=== PATIENT | female | born 1975 | race Caucasian/White ===

== ENCOUNTER → 2021-04-16 | Outpatient (CLI) | payer BC ==
[~2021-04-16] MED LIST: ALBU2.5V8 INH; AMLO-187 PO; ATOR20TA58 PO; OXYC-325 PO; SERT100T PO; olmesartan
== END ==
LOC: LAB 14:03
PROVIDERS: ATTEND Surgery
DX: Z01.812 Encounter for preprocedural laboratory examination (principal); Z20.822 Contact with and (suspected) exposure to COVID-19
CPT/HCPCS: U0003

== ENCOUNTER 2021-04-20 06:08 | Day surgery (SDC) | payer BC ==
[~2021-04-20] VITALS: Ht 174 cm; Wt 82.0 kg
[~2021-04-20 06:08] MED LIST changes: +ACETAMINOPHEN 500 MG TABLET PO PRN; -ALBU2.5V8 INH; -AMLO-187 PO; -ATOR20TA58 PO; +HYDROmorphone 2 MG/ML INJ. IVP PRN; +IV RINGERS,LACTATED 1000ML 1,000 ML IV SCH; +MORPHINE SULFATE 2 MG/ML INJ. IVP PRN; -OXYC-325 PO; +PROCHLORPERAZINE 10 MG/2 ML VIAL. IVP PRN; -SERT100T PO; +fentaNYL PF VIAL 100 MCG/2 ML VIAL IVP PRN; -olmesartan
[2021-04-20 06:34] VITALS: BP 161/95
[2021-04-20] MEDS ORDERED: SERT100T PO (06:43)
[2021-04-20] MEDS ORDERED: olmesartan (06:44)
[2021-04-20] MEDS ORDERED: ATOR20TA58 PO (06:45)
[2021-04-20] MEDS ORDERED: AMLO-187 PO (06:45)
[2021-04-20] MEDS ORDERED: ALBU2.5V8 INH (06:45)
[2021-04-20] MEDS ORDERED: BUPIVACAINE-EPI 0.25% 30 ML VIAL KIT. ONE (07:34)
[2021-04-20] MEDS ORDERED: fentaNYL PF VIAL 100 MCG/2 ML VIAL ONE (07:48)
[2021-04-20] MEDS ORDERED: MIDAZOLAM HCL/PF 2 MG/2 ML VIAL. ONE (07:48)
[2021-04-20] MEDS ORDERED: SUCCINYLCHOLINE 200 MG/10 ML VIAL. ONE (07:49)
[2021-04-20] MEDS ORDERED: HYDROmorphone 2 MG/ML INJ. ONE (08:24)
[2021-04-20] MEDS ORDERED: DEXAMETHASONE SOD PHOS 4 MG/ML VIAL ONE (08:30)
[2021-04-20] MEDS ORDERED: SEVOFLURANE 61 TO 120 MINUTES. IH ONE (08:30)
[2021-04-20] MEDS ORDERED: PROPOFOL 10 MG/ML (20ML) VIAL. IV ONE (08:30)
[2021-04-20] MEDS ORDERED: ONDANSETRON PF 4 MG/2 ML VIAL. ONE (08:30)
--- NOTE | 2021-04-20 08:39 | PDOC4 ---
Operative Note Operative Note Date: April 202021 at 8:37 AM Preoperative diagnosis: Right breast mass Postoperative diagnosis: Same Procedure: Excisional right breast biopsy Surgeon: Tiburcio Specimen: Right breast mass Law Examiner: None Dictation: Patient is 45-year-old female who felt a mass in her right breast on self-exam mammogram and ultrasound confirming a mass in the right breast. Procedure of excisional biopsy was explained to the patient detail all risk benefits were also discussed including bleeding infection alternatives to this procedure also discussed with patient who seemed to understand and gave a verbal written consent to have procedure performed. Patient was taken to the operating room placed in the supine position general anesthesia was initiated once patient was sleeping intubated her right chest were prepped and draped in the usual sterile fashion with ChloraPrep. Area around the nipple areolar complex was injected quarter percent Marcaine with epinephrine incision made with 15 blade scalpel is carried down through the subcutaneous tissue using electrocautery right hemostasis the mass was palpable and excised sharply with electrocautery. Once the mass was removed was marked with sutures with the short suture being the superior margin and the long suture the lateral margin. Wound was then closed in a single layer 4-0 subcuticular Monocryl Mastisol Steri-Strips and island dressings were applied. Patient was awakened extubated operating room taken recovery in stable condition all sponge instrument needle counts listed as correct estimated blood loss 5 mL SAMPSON MARROQUIN MD Apr 20, 2021 08:39
[2021-04-20] MEDS ORDERED: OXYC-325 PO (08:41)
--- NOTE | 2021-04-20 08:42 | DISCH ---
DISCHARGE INSTRUCTIONS Condition on Discharge Condition on Discharge: Stable Activity After Discharge Activity Instructions for Disc: Resume previous activity Diet after Discharge Diet after Discharge: Regular Wound Incision Care Other wound/incision instructi: Stefania shower in 24 hours Contacting the DRArnold after DC Call your doctor for: If your condition worsens Follow-Up Follow up with: Dr. Marroquin in 2-week SAMPSON MARROQUIN MD Apr 20, 2021 08:42
[2021-04-20 09:20] VITALS: BP 111/75
--- NOTE | 2021-04-22 19:07 | PATHOLOGY ---
[facility] Accession Number: [id number] . 01 Material submitted: . breast - RIGHT BREAST MASS . Modifiers: right . 01 Clinical history: . RIGHT BREAST LUMP RIGHT BREAST LUMP EXCISIONAL BIOPSY . 02 Diagnosis: Breast tissue, right breast lump oriented excisional biopsy: - INVASIVE DUCTAL CARCINOMA, HISTOLOGIC GRADE 2, FORMING A MASS MEASURING BETWEEN 1.5 AND 2.0 CM IN GREATEST DIMENSION. SEE SYNOPTIC REPORT. 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 - Invasive carcinoma is focally less than 1 mm from the closest (superficial) margin or resection. - Ductal carcinoma in situ is focally 4 mm from the closest (deep) margin of resection. - No lymphovascular tumor invasion identified. - Focal perineural tumor invasion identified. - Sclerosing adenosis, multifocal. - Proliferative fibrocystic changes with the following components: - Moderate/florid ductal epithelial hyperplasia. - Stromal fibrosis. - Duct ectasia. - Cystic change. - Apocrine metaplasia, focal. (JPM:mia/loulou; 04/21/2021) . . CASE SUMMARY: (INVASIVE CARCINOMA OF THE BREAST: Resection) Standard: AJCC-UICC 8 . SPECIMEN . Procedure ___ Other: Oriented excisional biopsy . Specimen Laterality ___ Right . TUMOR . +Tumor Site ___ Central (Subareolar) . Histologic Type ___ Invasive carcinoma of no special type (ductal) . Histologic Grade (Juanjo Histologic Score) Glandular (Acinar) / Tubular Differentiation ___ Score 2 (10 to 75% of tumor area forming glandular / tubular structures) . Nuclear Pleomorphism ___ Score 2 (Cells larger than normal with open vesicular nuclei, visible nucleoli, and moderate variability in both size and shape) . Mitotic Rate ___ Score 2 . Overall Grade ___ Grade 2 (scores of 6 or 7) . Tumor Size ___ Greatest dimension of largest invasive focus greater than 1 mm: Between 15 and 20 mm . +Tumor Focality ___ Single focus of invasive carcinoma . Ductal Carcinoma In Situ (DCIS) ___ Present +Architectural Patterns ___ Cribriform +Nuclear Grade ___ Grade II-III (intermediate- high) +Necrosis ___ Present, central (expansive "comedo" necrosis) . +Lobular Carcinoma In Situ (LCIS) ___ Not identified . +Microcalcifications ___ Present in non-neoplastic tissue ___ Present in DCIS ___ Present in invasive carcinoma . MARGINS . Invasive Carcinoma of Margins ___ Uninvolved by invasive carcinoma Distance from Closest Margin: Less than 1 mm Specify Closest Margin: Superficial margin . DCIS Margins ___ Uninvolved by DCIS Distance from Closest Margin: 4 mm Specify Closest Margin: Deep margin . REGIONAL LYMPH NODES . Regional Lymph Node Status ___ No lymph nodes submitted or found . Lymphovascular Invasion ___ Not identified . PATHOLOGIC STAGE CLASSIFICATION (pTNM, AJCC 8th Edition) . pT Category ___ pT1c: Tumor greater than 10 mm but less than or equal to 20 mm in greatest dimension . Regional Lymph Nodes . pN Category ___ pNX: Regional lymph nodes cannot be assessed . ADDITIONAL FINDINGS . +Additional Findings: See diagnoses . SPECIAL STUDIES . +Breast Biomarker Testing: Pending (JPM/db; 04/22/2021) MBR 04/22/2021 1805 Local . 02 Comment: The case is also examined by Dr. Fenton, who concurs with the diagnosis. The results are reported to Dr. Dey on 04/22/21 at 1:30 PM. (JPM/db; 04/22/2021) . 02 Electronically signed: . Steve Caldera MD, Pathologist NPI- [id number] . 01 Gross description: . Fixative: Formalin Labeled: Right breast mass Specimen received: Intact Oriented: Short stitch superficial, long stitch lateral Weight: 27 g Dimensions: 4.1 cm medial to lateral, 4.1 cm superior to inferior, 2.2 cm superficial to deep, . The specimen is inked as follows: superior-red inferior-blue superficial-green deep-black lateral-orange medial-yellow . Sectioned from: Superior to inferior Number of slices: 9 Lesion #1: 1.5 cm medial to lateral, 1.4 cm superficial to deep 1.1 cm superior to inferior Lesion #1 located in slices 5-9 . Lesion #1 distance to margins: 0.9 cm to superior 0.6 cm to inferior Involves the superficial margin, slices 4-5 0.3 cm to deep, slice 6 1.1 cm to lateral, slice 6 0.8 cm to medial, slice 5 . Lesion #1 distance to Lesion #2: 0.8 cm Lesion #2: 1.5 cm superior to inferior, 0.5 cm medial to lateral and 0.7 cm superficial to deep Lesion #2 located in slices 1-6 . Lesion #2 distance to margins: 0.5 cm to superior 1.3 cm to inferior 0.8 cm to superficial, slice 5 Suspicious for involving the deep margin, slices 2-3 Involves the lateral margin, slice 1 and 4 3.0 cm to medial, slice 5 . If lesion #1 and lesion #2 are contiguous then the new dimensions would be approximately 4.0 superior to inferior x 3.3 cm medial to lateral x 1.4 superficial to deep Biopsy clip: Not identified Uninvolved breast parenchyma: Fatty and homogenous with less than 5% fibrous tissue . The specimen is entirely submitted as follows: A1-A6: Slice 1 A7-A9: Slice 2 A10-A12: Slice 3 A13-A14: Slice 4 A15-A16: Slice 5 A17-A18: Slice 6 A19-A21: Slice 7 A22-A24: Slice 8 A25-A29: Slice 9 . Cold ischemic time: Less than 60 seconds Total time in formalin: 10 hours ([place]; 04/20/2021) DKA/DKA 04/20/2021 1556 Local . 02 Pathologist provided ICD-10: C50.911, D05.11, N60.21, N60.11, N62, N60.31, N60.41, N60.81 . 02 CPT . 693485 Specimen Comment: A courtesy copy of this report has been sent to [phone] Specimen Comment: Report sent to Specimen Comment: A duplicate report has been generated due to demographic updates. Performed at: [address] [place] [address] [facility] [address], [place], [place] [id number] MD Arnel Maxwell MD Phone: [phone] Performed at: [address] [id number] MD Steve Caldera MD Phone: [phone]
== END 2021-04-20 09:47 | disposition home or self-care (01) ==
LOC: SURG 06:08
PROVIDERS: ATTEND Surgery
DX: N63.12 Unspecified lump in the right breast, upper inner quadrant (principal); I10 Essential (primary) hypertension; E78.00 Pure hypercholesterolemia, unspecified; J44.9 Chronic obstructive pulmonary disease, unspecified; M19.90 Unspecified osteoarthritis, unspecified site; F41.9 Anxiety disorder, unspecified; F32.9 Major depressive disorder, single episode, unspecified; Z87.891 Personal history of nicotine dependence; Z79.899 Other long term (current) drug therapy; Z98.890 Other specified postprocedural states; Z88.5 Allergy status to narcotic agent
CPT/HCPCS: 19120; 81025; 88307; 88361; A4364; A4930; A6254; A6402; J0330; J0690; J1100; J1170; J2250; J2405; J2704; J3010; A4223; A4452

== ENCOUNTER 2021-05-05 11:49 | Day surgery (SDC) | payer BC ==
[~2021-05-05] VITALS: Ht 174 cm; Wt 82.0 kg
[~2021-05-05 11:49] MED LIST changes: +ALBU2.5V8 INH; +AMLO-187 PO; +ATOR20TA58 PO; +OXYC-325 PO; +SERT100T PO; +olmesartan
[2021-05-05 12:24] VITALS: BP 158/89
[2021-05-05] MEDS ORDERED: fentaNYL PF VIAL 100 MCG/2 ML VIAL ONE (12:43)
[2021-05-05] MEDS ORDERED: PROPOFOL 10 MG/ML (20ML) VIAL. IV ONE (12:43)
[2021-05-05] MEDS ORDERED: LIDOCAINE 2% PF 5 ML VIAL. ONE (12:43)
[2021-05-05] MEDS ORDERED: ONDANSETRON PF 4 MG/2 ML VIAL. ONE (12:44)
[2021-05-05] MEDS ORDERED: ISOSULFAN BLUE 1% 50 MG/5 ML VIAL. SQ ONE (13:06)
[2021-05-05] MEDS ORDERED: BUPIVACAINE-EPI 0.25%-1:200000 MPF 30 ML VIAL. ONE (13:06)
[2021-05-05] MEDS ORDERED: MIDAZOLAM HCL/PF 2 MG/2 ML VIAL. ONE (13:48)
[2021-05-05] MEDS ORDERED: HYDROmorphone 2 MG/ML INJ. ONE (14:18)
[2021-05-05] MEDS ORDERED: ePHEDrine PF IN SALINE 50 MG/10 ML SYRINGE. IV ONE (14:27)
--- NOTE | 2021-05-05 14:39 | PDOC4 ---
Operative Note Operative Note Date: May 052021 at 2:37 PM Preoperative diagnosis: Right breast cancer Postoperative diagnosis: Same Procedure: Right axillary sentinel lymph node biopsy Surgeon: Tiburcio Specimen: Lymph node right axilla Dictation: Patient is a 45-year-old female written previously undergone an excisional breast biopsy of a mass beneath the nipple areolar complex on the right breast the pathology report showed a invasive ductal carcinoma. She returns now for a sentinel lymph node biopsy of the right side. Procedure of sentinel lymph node biopsy was explained to the patient detail risk benefits were also discussed occluding bleeding infection alternatives to this procedure also discussed with the patient who seemed to understand and gave both verbal and written consent to have the procedure performed. Patient was taken to the operating room placed in the supine position general anesthesia was initiated once patient was sleeping intubated her right axilla and breast were prepped and draped usual sterile fashion. She had previously had injected from radiology nuclear medicine for the lymph nodes at this point and Lymphazurin was injected 1-1/2 cc in the 4 quadrants around the nipple areolar complex. This was allowed to percolate for 5 minutes. The counter was used to guide the incision in the right axilla area was marked injected with quarter percent Marcaine with epinephrine incision was made 15 blade scalpel is carried down through subcutaneous tissue using electrocautery right hemostasis down to an area where there was quite a bit of activity and a blue lymphatic duct was visualized this was followed down to have fairly large lymph node. Lymph node was excised with electrocautery and check for counting on the K track which showed a count of 3214. The specimen was sent for pathology. The wound was then closed in 2 layers a deep layer running 3-0 Vicryl and skin was reapproximated for subcuticular Monocryl Mastisol Steri-Strips and island dressings were applied. Patient was awakened extubated operating room taken to recovery in stable condition all sponge instrument needle counts listed as correct estimated blood loss 5 mL SAMPSON MARROQUIN MD May 05, 2021 14:39
[2021-05-05] MEDS ORDERED: OXYC-325 PO (14:42)
--- NOTE | 2021-05-05 14:45 | DISCH ---
DISCHARGE INSTRUCTIONS Condition on Discharge Condition on Discharge: Stable Activity After Discharge Activity Instructions for Disc: Resume previous activity Diet after Discharge Diet after Discharge: Regular Wound Incision Care Other wound/incision instructi: Stefania shower in 24-hour Contacting the DRArnold after DC Call your doctor for: If your condition worsens Follow-Up Follow up with: Dr. Marroquin in 2-week SAMPSON MARROQUIN MD May 05, 2021 14:45
--- NOTE | 2021-05-05 15:03 | RAD ---
NM SENTINEL NODE INJECTION History: Right breast cancer Technique: Procedure was explained to the patient. External skin site was cleansed with Betadine swab s. A total of 0.5 mCi of technetium 99 M was injected utilizing 1 syringe. Total volume of solution w as 0.5 mL. There was no significant bleeding or complication. Impression: Successful right breast injection for sentinel lymph node localization Electronically signed by: Krzysztof Clarke DO (05/05/2021 3:01 PM) [id number]
[2021-05-05] MEDS ORDERED: oxyCODONE/APAP 5/325 1 TAB TABLET PO ONE (15:15)
[2021-05-05 15:30] VITALS: BP 110/68
--- NOTE | 2021-05-08 12:13 | PATHOLOGY ---
[facility] Accession Number: [id number] . 01 Material submitted: . lymph node - RIGHT SENTINEL LYMPH NODE. Modifiers: right . 01 Clinical history: . RIGHT BREAST MASS SENTINEL LYMPH NODE BIOPSY RIGHT . 02 Diagnosis: Lymph nodes, right sentinel lymph node biopsy: - Two lymph nodes showing focal anthracosis, negative for tumor. See comment. (JPM:senior media buyer; 05/07/2021) MBR 05/08/2021 1108 Local . 02 Comment: There are two sentinel lymph nodes identified. The sentinel lymph nodes are examined at multiple levels. In addition, immunoperoxidase stains for AE1/AE3 are also obtained and yield the following results: . AE1/AE3 (A1): Negative for tumor. AE1/AE3 (A2): Negative for tumor. AE1/AE3 (A3): Negative for tumor. . Thus, there are a total of 2 sentinel lymph nodes which are negative for tumor. . (JPM:senior media buyer; 05/07/2021) . . Special stain performed: Immunoperoxidase stains for AE1/AE3 on A1, A2 and A3 . 02 Electronically signed: . Steve Caldera MD, Pathologist NPI- [id number] . 01 Gross description: . The specimen is received in formalin, labeled "[place], right breast sentinel lymph node." Received is a segment of yellow-nicholas lobulated tissue measuring 4.3 x 3.1 x 1.8 cm in greatest dimensions. Dissection and palpation of the specimen reveals two lymph nodes measuring 1.4 and 3.1 cm in maximum dimensions. Sectioning reveals white-nicholas to pale moss cut surfaces. Each lymph node is bisected and submitted entirely as follows: . A1 smaller lymph node, bisected A2-A3 larger lymph node, bisected. . Immunohistochemical stains are ordered. (CAA; 05/06/2021) QAC/QAC 05/07/2021 1614 Local . 02 Pathologist provided ICD-10: N63.0 . 02 CPT . 325989, [id number] Specimen Comment: A courtesy copy of this report has been sent to [phone] Specimen Comment: Report sent to Specimen Comment: A duplicate report has been generated due to demographic updates. Performed at: 01 [facility] [address] [id number] MD Arnel Maxwell MD Phone: [phone] Performed at: 02 [facility] [address] [place], [place] [id number] MD Steve Caldera MD Phone: [phone]
== END 2021-05-05 15:55 | disposition home or self-care (01) ==
LOC: SURG 11:49
PROVIDERS: ATTEND Surgery
DX: C50.911 Malignant neoplasm of unspecified site of right female breast (principal); I10 Essential (primary) hypertension; E78.00 Pure hypercholesterolemia, unspecified; J44.9 Chronic obstructive pulmonary disease, unspecified; M19.90 Unspecified osteoarthritis, unspecified site; F41.9 Anxiety disorder, unspecified; F32.9 Major depressive disorder, single episode, unspecified; Z79.899 Other long term (current) drug therapy; Z98.890 Other specified postprocedural states; Z87.891 Personal history of nicotine dependence; Z72.89 Other problems related to lifestyle; Z88.5 Allergy status to narcotic agent
CPT/HCPCS: 38500; 38792; 81025; 88307; 88342; 96374; A4209; A4364; A4930; A6402; A9520; J0690; J1170; J2250; J2405; J2704; J3010; J3490; Q9968; A4223; A4452

== ENCOUNTER → 2021-05-08 | Outpatient (CLI) | payer BC ==
[2021-05-05 15:30] VITALS: BP 110/68
[~2021-05-08] MED LIST changes: -ACETAMINOPHEN 500 MG TABLET PO PRN; -HYDROmorphone 2 MG/ML INJ. IVP PRN; -IV RINGERS,LACTATED 1000ML 1,000 ML IV SCH; -MORPHINE SULFATE 2 MG/ML INJ. IVP PRN; -PROCHLORPERAZINE 10 MG/2 ML VIAL. IVP PRN; -fentaNYL PF VIAL 100 MCG/2 ML VIAL IVP PRN
[2021-05-08 11:20] LABS: BASO % 0 % (0-3); EOS # 0.1 x10^3/uL (0.0-0.7); EOS % 1 % (0-3); HEMATOCRIT 42.3 % (36.0-47.0); HEMOGLOBIN 13.8 g/dL (12.0-15.5); LYMPH # 0.9 x10^3/uL (1.0-4.8); LYMPH % 12 % (24-48); MEAN CORPUSCULAR HEMOGLOBIN 28 pg (25-35); MEAN CORPUSCULAR HGB CONC 33 g/dL (31-37); MEAN CORPUSCULAR VOLUME 86 fL (79-100); MONO # 0.5 x10^3/uL (0.0-1.1); MONO % 7 % (0-9); NEUT # 6.4 x10^3/uL (1.8-7.7); NEUT % 80 % (31-73); PLATELET COUNT 226 x10^3/uL (140-400); RED BLOOD COUNT 4.91 x10^6/uL (3.50-5.40); RED CELL DISTRIBUTION WIDTH 15.3 % (11.5-14.5); WHITE BLOOD COUNT 7.9 x10^3/uL (4.0-11.0)
[2021-05-08 11:35] LABS: CALCIUM 8.8 mg/dL (8.5-10.1); CREATININE 0.7 mg/dL (0.6-1.0); GFR 89.7; POTASSIUM 4.4 mmol/L (3.5-5.1)
[2021-05-08 11:41] LABS: ALBUMIN/GLOBULIN RATIO 1.1 (1.0-1.7); TOTAL BILIRUBIN 0.4 mg/dL (0.2-1.0); TOTAL PROTEIN 7.5 g/dL (6.4-8.2)
[2021-05-08 23:08] LABS: FSH 12.3 mIU/mL (.)
== END ==
LOC: ONCLAB 10:30
PROVIDERS: ATTEND Internal Medicine Hematology & Oncology
DX: C50.911 Malignant neoplasm of unspecified site of right female breast (principal)
CPT/HCPCS: 36415; 80053; 82670; 83001; 83002; 85025